=== PATIENT | male | born 1970 | race Caucasian/White ===

== ENCOUNTER 2017-05-02 12:34 | Emergency (ER) | payer MEDICAID, OTHER ==
[2017-05-02 12:40] VITALS: BP 192/129
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
== END 2017-05-02 14:00 | disposition home or self-care (01) ==
LOC: JP.ED 12:34
DX: S40.011A Contusion of right shoulder, initial encounter (principal); M62.838 Other muscle spasm; Z87.891 Personal history of nicotine dependence; V89.2XXA Person injured in unspecified motor-vehicle accident, traffic, initial encounter
CPT/HCPCS: 72050; 72050-26; 73030-26-RT; 73030-RT; 99284

== ENCOUNTER 2018-01-11 18:18 | Emergency (ER) | payer BC, MEDICAID ==
[2018-01-11 19:39] VITALS: BP 188/126
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
== END 2018-01-11 21:28 | disposition home or self-care (01) ==
LOC: JP.ED 18:18
DX: K04.7 Periapical abscess without sinus (principal); K02.9 Dental caries, unspecified; I10 Essential (primary) hypertension
CPT/HCPCS: 36415; 80048; 85025; 86140; 99283